=== PATIENT | male | born 1940 | race Caucasian/White ===

== ENCOUNTER 2017-10-03 07:12 | Emergency (ER) | payer MEDICARE ==
[2017-10-03] MEDS ORDERED: TETANUS/DIPHTHERIA TOXOID [ADULT] 0.5 ML VIAL IM ONE (07:53)
[2017-10-03] MEDS ORDERED: CEPHALEXIN 500 MG CAPSULE ONE (08:17)
[2017-10-03] MEDS ORDERED: TRAMADOL HCL 50 MG TABLET ONE (08:18)
== END 2017-10-03 10:10 | disposition home or self-care (01) ==
LOC: EDH 07:12 → EDBD 07:12 → EDH 10:10
DX: S92.351A Displaced fracture of fifth metatarsal bone, right foot, initial encounter for closed fracture (principal); S91.311A Laceration without foreign body, right foot, initial encounter; W22.03XA Walked into furniture, initial encounter; Y93.89 Activity, other specified; Y92.098 Other place in other non-institutional residence as the place of occurrence of the external cause; Y99.8 Other external cause status
CPT/HCPCS: 73660; 90471; 90714